=== PATIENT | male | born 1990 | race Caucasian/White ===

== ENCOUNTER 2016-07-26 23:06 | Emergency (ER) | payer OTHER ==
[2016-07-26 23:25] VITALS: PULSE 64; O2SAT 97
--- NOTE | 2016-07-26 23:58 | CPEKG ---
Heart Rate: 57 RR Interval: 1053 P-R Interval: 152 QRSD Interval: 94 QT Interval: 408 QTC Interval: 398 P [place]: 41 QRS [place]: 65 T Wave [place]: 8 EKG Severity - NORMAL ECG - EKG Impression: SINUS RHYTHM Electronically Signed By: Apollo Bryson 27-Jul-2016 05:50:55
--- NOTE | 2016-07-27 00:39 | EDPHY ---
H & P Stated Complaint: chest pain x 3-4 days Time Seen by Provider: 07/27/16 00:17 HPI/ROS: Chief Complaint: Chest pain HPI: 26-year-old male presenting with 2 days of constant left central chest pain. At worst is about a 3 to 4/10. There are no aggravating or alleviating factors. Describes a dull ache in his left chest. No nausea or vomiting. No shortness of breath. No cough. No recent illness. Pain is not pleuritic. There is no calf pain or swelling. Does not have any family history of coronary artery disease. Does not smoke. He did take some ibuprofen 2 days ago which did not help. Is not taking any medications since. ROS: 10 point Review of Systems is negative except as noted in the HPI. PMH: None Medications: None Allergies: No known drug allergies Social History: No smoking, no alcohol, occasional marijuana last used 2 days ago Family History: No family history of coronary artery disease or sudden cardiac Physical Exam: Gen: Awake, Alert, No Distress HEENT: Nose: no rhinorrhea Eyes: PERRLA, EOMI Mouth: Moist mucosa Neck: Supple, no JVD Chest: nontender, lungs clear to auscultation Heart: S1, S2 normal, no murmur Abd: Soft, non-tender, no guarding Back: no CVA tenderness, no midline tenderness Ext: no edema, non-tender Skin: no rash Neuro: CN II-XII intact, Sensation grossly intact, Strength 5/5 in bilateral upper and lower extremities - Personal History Current Tetanus Diphtheria and Acellular Pertussis (TDAP): Yes - Medical/Surgical History Hx Asthma: No Hx Chronic Respiratory Disease: No Hx Diabetes: No Hx Cardiac Disease: No Hx Renal Disease: No Hx Cirrhosis: No Hx Alcoholism: No Hx HIV/AIDS: No Hx Splenectomy or Spleen Trauma: No - Social History Smoking Status: Never smoked Constitutional: Initial Vital Signs Temperature (C) 36.8 C 07/26/16 23:23 Heart Rate 64 07/26/16 23:23 Respiratory Rate 20 07/26/16 23:23 Blood Pressure 133/81 H 07/26/16 23:23 O2 Sat (%) 97 07/26/16 23:23 O2 Delivery Mode Room Air Allergies/Adverse Reactions: No Known Allergies Allergy (Unverified 07/26/16 23:22) Home Medications: Medication Instructions Recorded NK [No Known Home Meds] 07/26/16 Medical Decision Making - Diagnostics EKG Interpretation: ECG time 11:56 p.m.: Sinus rhythm with rate of 57, normal axis, normal intervals, no acute ST or T-wave changes. Impression: Normal ECG Imaging Results: Chest x-ray: Negative per my interpretation. Imaging: I viewed and interpreted images myself ED Course/Re-evaluation: 26-year-old with persistent chest pain for the last 2 days. ECG is negative. Chest x-ray is negative. He has no risk factors for coronary disease. Symptoms consistent with musculoskeletal chest wall pain. Will discharge with follow-up with PCP as an outpatient. - Data Points Laboratory Results: 07/26/16 23:45 Troponin I < 0.012 ng/mL ng/mL (0-0.034) Departure - Departure Disposition: Home, Routine, Self-Care Clinical Impression: Chest pain Condition: Good Instructions: Chest Pain (ED) Additional Instructions: Follow up with primary care physician in 2-3 days for re-evaluation. Return to the emergency depart for increasing pain, shortness of breath, fainting, nausea, vomiting, or any other concerns. Referrals: Lis Evans MD [Primary Care Provider] - As per Instructions
[2016-07-27 01:55] VITALS: BP 103/65; RESP 16; TEMP 98.1
== END 2016-07-27 01:54 | disposition home or self-care (01) ==
DX: R07.9 Chest pain, unspecified (principal)

== ENCOUNTER 2016-12-10 15:50 | Emergency (ER) | payer OTHER ==
[2016-12-10 15:55] VITALS: RESP 16
[2016-12-10] MEDS ORDERED: KETOROLAC 30 MG/1 ML SDV IVP ONE (16:09)
[2016-12-10] MEDS ORDERED: DEXAMETHASONE 10 MG/ML VIAL IVP ONE (16:09)
[2016-12-10] MEDS ORDERED: METOCLOPRAMIDE 10 MG/2 ML VIAL IVP ONE (16:09)
[2016-12-10] MEDS ORDERED: NS 500 ML IV ONE (16:10)
--- NOTE | 2016-12-10 16:15 | EDPHY ---
H & P Time Seen by Provider: 12/10/16 15:57 HPI/ROS: HPI Migraine headache. 26-year-old male by private vehicle. He complains of a gradual onset typical migraine headache starting several hours ago. He reports that this starts from the base of his skull and moved to the frontal portion of his forehead area and behind his eyes. He has had some associated nausea with it. He also reports some tingling in his hands and right arm. He has a history of migraine headaches. They become more frequent over the last several months. He does not see a neurologist for these headaches. He has seen his primary care physician. He did some research online and is concerned that he may have MS. he has not had a fever. No history of trauma. He denies any visual changes. ROS: Constitutional: No fever, no chills. No weakness. Eyes: No discharge. No changes in vision. ENT: No sore throat. No nasal congestion or rhinorrhea. Respiratory: No cough. No shortness of breath. Cardiac: No chest pain, no palpitations. Gastrointestinal: No abdominal pain, no vomiting, no diarrhea. As above. Genitourinary: No hematuria. No dysuria or increased frequency with urination. Musculoskeletal: No back pain. No neck pain. No myalgias or arthralgias. Skin: No rashes. Neurological: As above. No focal weakness or altered sensation. As above. Past medical history: Migraine headaches. Primary care is Dr. Evans. Social history: He does not smoke. No alcohol. He works as a audio sales promotion representative. He is here by himself. Physical Exam: General Appearance: Alert, no distress. This patient is responding to questions appropriately and in full sentences. This patient appears well- hydrated and well-nourished. Eyes: Pupils equal and round no pallor or injection. No lid edema, erythema or injection. No nystagmus. No photophobia. Funduscopic exam does not show papilledema. ENT, Mouth: Mucous membranes are moist. The pharyngeal tissues are unremarkable. No edema or swelling. No asymmetry suggestive of abscess. No erythema or exudates. Respiratory: There are no retractions, lungs are clear to auscultation with good air movement bilaterally. Cardiovascular: Regular rate and rhythm. No murmur. Gastrointestinal: Abdomen is soft and nontender, no masses, bowel sounds normal. No focal tenderness at McBurney's point. No Kovacs sign. Neurological: Motor sensory function is grossly intact. Cranial nerves are normal. Gait is normal. Skin: Warm and dry, no rashes. Musculoskeletal: Neck is supple and nontender. No pain on flexion of his neck. No suboccipital tenderness on palpation. No tenderness on palpation of the lateral soft tissues of the neck. Extremities are symmetrical. All joints range without pain or impingement. Psychiatric: No agitation. No depression. Database: EKG: Imaging: Procedures: Emergency department course: IV placed. He was placed on a monitor. Vital signs reviewed and are normal. He is afebrile. He was started on IV normal saline with 500 cc to be given over the next hour. He will initially be given 30 mg of IV Toradol, 10 mg of IV Decadron, 10 mg of IV Reglan and 25 mg of IV Benadryl for treatment of his migraine headache. He has no contraindications to NSAIDs or history of renal dysfunction. I discussed MS being unlikely based on his clinical exam. I discussed getting an MRI of his brain as an outpatient. 4:30 p.m., patient re-evaluated. Resting comfortably at this time. He is starting to feel better after the above medications. 5:30 p.m., patient re-evaluated. Migraine headache resolved. Repeat neurologic Assessment is nonfocal. He feels comfortable going home and I feel he is safe for discharge. I will refer him to Neurology, Dr. Froilan Ding or 1 of his partners for further evaluation. Neurology can also arrange for him to have an outpatient MRI of his brain as we discussed earlier. This can also be done by his primary care physician. He endorses this plan. He understands his follow-up. Return to emergency department precautions reviewed with him. All of his questions were answered. He was discharged in good condition. Differential Diagnosis: The differential diagnosis on this patient includes but is not limited to migraine headache. Cavernous sinus thrombosis, MS, sagittal sinus thrombosis, subarachnoid hemorrhage, temporal arteritis, meningitis, encephalitis unlikely. This represents a partial list of diagnoses considered. These considerations are based on history, physical exam, past history, reassessment and diagnostic testing. Smoking Status: Never smoked Constitutional: Initial Vital Signs Heart Rate 78 12/10/16 15:53 Respiratory Rate 16 12/10/16 15:53 Blood Pressure 117/68 09/10/17 15:53 O2 Sat (%) 100 12/10/16 15:53 O2 Delivery Mode Room Air Allergies/Adverse Reactions: No Known Allergies Allergy (Unverified 07/26/16 23:22) Home Medications: Medication Instructions Recorded NK [No Known Home Meds] 07/26/16 Medical Decision Making - Data Points Medications Given: Discontinued Medications Dexamethasone (Decadron Injection) 10 mg IVP EDNOW ONE Stop: 12/10/16 16:10 Last Admin: 12/10/16 16:15 Dose: 10 mg Diphenhydramine HCl (Benadryl Injection) 25 mg IVP EDNOW ONE Stop: 12/10/16 16:10 Last Admin: 12/10/16 16:15 Dose: 25 mg Sodium Chloride (Ns) 500 mls @ 0 mls/hr IV ONCE ONE; Wide Open PRN Reason: Protocol Stop: 12/10/16 16:11 Last Admin: 12/10/16 16:15 Dose: 500 mls Ketorolac Tromethamine (Toradol) 30 mg IVP EDNOW ONE Stop: 12/10/16 16:10 Last Admin: 12/10/16 16:15 Dose: 30 mg Metoclopramide HCl (Reglan Injection) 10 mg IVP EDNOW ONE Stop: 12/10/16 16:10 Last Admin: 12/10/16 16:15 Dose: 10 mg Departure - Departure Disposition: Home, Routine, Self-Care Clinical Impression: Headache Condition: Good Instructions: Migraine Headache (ED) Additional Instructions: Read and follow provided instructions. Follow-up with Neurology, this week for re-evaluation and further management of your headaches. Call the office of Dr. Froilan Ding tomorrow morning as discussed. Explain this is for an emergency department follow-up. Dr. Ding can arrange for you to get an MRI of your brain. Your primary care physician, Dr. Evans, can also arrange for this study to be obtained. Return to the emergency department for return of headache, fever, vomiting or other serious concerns. Referrals: Froilan Ding MD [Medical Doctor] - As per Instructions
[2016-12-10 17:47] VITALS: O2SAT 98
[2016-12-10 18:24] VITALS: BP 104/76; PULSE 81; TEMP 97.9
== END 2016-12-10 18:23 | disposition home or self-care (01) ==
PROC: 3E0337Z Introduction of Electrolytic and Water Balance Substance into Peripheral Vein, Percutaneous Approach (ICD-10-PCS; principal; 2016-12-10)
DX: R51 Headache (principal); E86.9 Volume depletion, unspecified
CPT/HCPCS: 96374; J1100; J1200; J1885; J2765

== ENCOUNTER 2017-03-22 16:09 | Emergency (ER) | payer OTHER ==
[2017-03-22 16:21] VITALS: RESP 16; TEMP 98.1
--- NOTE | 2017-03-22 17:18 | EDPHY ---
H & P Stated Complaint: leg/shoulder numbness Time Seen by Provider: 03/22/17 16:54 HPI/ROS: Chief Complaint: Numbness and tingling HPI: 26-year-old male who is noticed over the last week or so some numbness and tingling behind both of his legs primarily on the right just below his buttocks. Patient also noticed yesterday some tingling behind his left shoulder. He says it is not quite as bad as the pins and needles as when you fall sleep on it but just a dull sensation of numbness. Denies actually loss of sensation. He has not have any history of back pain or injuries. Does have a history migraine headaches but has not recently. Is currently being treated for anxiety and started on Lexapro 2 days ago. Patient states symptoms started before he was on the Lexapro. He is very anxious about this not sleeping at night. He called his primary care physician instructed him to come to the emergency department for further evaluation. He is not having any difficulty walking. He has not have any difficulty urinating or having a bowel movement. No back pain. No fevers or chills. No history of IV drug use. ROS: 10 point Review of Systems is negative except as noted in the HPI. PMH: Anxiety, headaches Social History: No smoking, occasional alcohol, occasional marijuana Family History: non-contributory Physical Exam: Gen: Awake, Alert, No Distress, very anxious appearing HEENT: Nose: no rhinorrhea Eyes: PERRLA, EOMI Mouth: Moist mucosa Neck: Supple, no JVD Chest: nontender, lungs clear to auscultation Heart: S1, S2 normal, no murmur Abd: Soft, non-tender, no guarding Back: no CVA tenderness, no midline tenderness Ext: no edema, non-tender Skin: no rash Neuro: CN II-XII intact, Sensation grossly intact, Strength 5/5 in bilateral upper and lower extremities, normal finger-nose, normal heel-maddox, he has 5/5 strength in bilateral upper lower extremity proximal and distal flexors and extensors. He has 2+ deep tendon reflexes in the brachioradialis, patellar. Toes are downgoing. Sensations intact in all upper and lower extremity dermatomes. Sensations intact to light touch and pinprick sensation. He has no loss of sensation in his buttocks or behind either legs or in his left shoulder. - Personal History Current Tetanus/Diphtheria Vaccine: Yes Current Tetanus Diphtheria and Acellular Pertussis (TDAP): Yes - Medical/Surgical History Hx Asthma: No Hx Chronic Respiratory Disease: No Hx Diabetes: No Hx Cardiac Disease: No Hx Renal Disease: No Hx Cirrhosis: No Hx Alcoholism: No Hx HIV/AIDS: No Hx Splenectomy or Spleen Trauma: No Other PMH: Migraines, depression, anxiety, - Social History Smoking Status: Never smoked Constitutional: Initial Vital Signs Temperature (C) 36.7 C 03/22/17 16:18 Heart Rate 72 03/22/17 16:18 Respiratory Rate 16 03/22/17 16:18 Blood Pressure 145/92 H 03/22/17 16:18 O2 Sat (%) 98 03/22/17 16:18 O2 Delivery Mode Room Air Allergies/Adverse Reactions: No Known Allergies Allergy (Unverified 03/22/17 16:18) Home Medications: Medication Instructions Recorded Lexapro 03/22/17 Medical Decision Making ED Course/Re-evaluation: 26-year-old male presenting with vague paresthesias in his buttocks primarily in the right in his left shoulder. He has no back tenderness. He has no neurologic deficits whatsoever. No evidence of acute spinal process, no evidence of acute radicular process. No evidence of acute progressive neurologic process such as Guillain-[place]. He has a completely normal neurologic exam. Patient is anxious and I think his anxiety might have some component to this. He has been reassured. I do not think there is indication for any imaging or other testing at this time. He will be discharged with instructions to follow up with his primary care physician in a week, return for worsening. Departure - Departure Disposition: Home, Routine, Self-Care Clinical Impression: Paresthesia Condition: Good Instructions: Paresthesia (ED) Additional Instructions: Follow up with primary care physician in about a week for re-evaluation. Return to the emergency department for worsening numbness or weakness, difficulty urinating, difficulty walking, headache, nausea, vomiting, or any other concerns. Referrals: Lis Evans MD [Primary Care Provider] - As per Instructions
[2017-03-22 17:26] VITALS: BP 136/78; PULSE 68; O2SAT 97
== END 2017-03-22 17:26 | disposition home or self-care (01) ==
DX: R20.2 Paresthesia of skin (principal)